=== PATIENT | female | born 1990 | race African-American/Black ===

== ENCOUNTER 2016-11-24 12:05 | Emergency (ER) | payer OTHER ==
[~2016-11-24] VITALS: Ht 154.9 cm; Wt 77.1 kg
[~2016-11-24 12:05] MED LIST: BENADRYL PRN; FERROUS SULFAT325 MG PO; MOTRIN800 MG PO; PRENATAL VITAMI1 T10 PO
[2016-11-24 12:26] VITALS: BP 131/96
--- NOTE | 2016-11-24 12:42 | NUR ---
PATIENT PRESENTS TO ED WITH COLD SYMPTOMS: COUGH, RUNNY NOSE, BODY ACHES X3 DAYS . PT DENIES N/V/D; SKIN IS PINK/WARM/DRY; AAOX4 WITH EVEN AND STEADY GAIT; LUNGS CLEAR BL; HR EVEN AND REGULAR; PATIENT STATES PAIN OF 0/10 AT THIS TIME; VSS; PATIENT POSITIONED FOR COMFORT; HOB ELEVATED; BEDRAILS UP X2; BED DOWN. SEEN BY ER .
[2016-11-24 12:59] VITALS: BP 131/96
== END 2016-11-24 12:59 | disposition home or self-care (01) ==
LOC: MED 12:05
DX: J11.1 Influenza due to unidentified influenza virus with other respiratory manifestations (principal); R03.0 Elevated blood-pressure reading, without diagnosis of hypertension

== ENCOUNTER 2018-03-14 05:06 | Observation (INO) | payer OTHER ==
[2018-03-14 05:30] VITALS: BP 108/53
== END 2018-03-14 05:55 | disposition home or self-care (01) ==
LOC: MLD 05:06
PROVIDERS: ADMIT Obstetrics & Gynecology; ATTEND Obstetrics & Gynecology
DX: O26.893 Other specified pregnancy related conditions, third trimester (principal); R10.9 Unspecified abdominal pain; O36.8130 Decreased fetal movements, third trimester, not applicable or unspecified; Z3A.37 37 weeks gestation of pregnancy
CPT/HCPCS: 59025; 81000; G0378

== ENCOUNTER 2018-03-23 11:19 | Inpatient (IN) | payer OTHER ==
[~2018-03-23] VITALS: Ht 154.9 cm; Wt 89.8 kg
[2018-03-23] MEDS ORDERED: TERBUTALINE 1 MG/ML VIAL SUBQ SCH (11:40)
[2018-03-23] MEDS ORDERED: TERBUTALINE 1 MG/ML VIAL SUBQ ONE ×2 (11:42→12:16)
[2018-03-23 13:11] VITALS: BP 132/63
[2018-03-23] MEDS ORDERED: NALBUPHINE 10 MG/ML AMP IVP PRN ×2 (16:55→23:20)
[2018-03-23] MEDS ORDERED: NALBUPHINE 10 MG/ML AMP ONE (17:01)
[2018-03-23] MEDS: LACTATED RINGERS 1,000 ML IV SCH ×2 (19:48→20:52)
[2018-03-23 19:56] LABS: BASOPHILS # (AUTO) 0.1 K/uL (0.00-0.22); BASOPHILS % (AUTO) 0.9 % (0.0-2.0); EOSINOPHILS % (AUTO) 0.3 % (0.0-4.0); HEMATOCRIT 32.9 % (36-48); HEMOGLOBIN 10.4 g/dL (12.0-16.0); LYMPHOCYTES # (AUTO) 1.9 K/uL (2.5-16.5); LYMPHOCYTES % (AUTO) 14.4 % (20.5-51.1); MEAN CORPUSCULAR HEMOGLOBIN 25 pg (27-31); MEAN CORPUSCULAR HGB CONC 32 g/dL (33-37); MEAN CORPUSCULAR VOLUME 78.2 fL (80-94); MONOCYTES # (AUTO) 0.7 K/uL (0.8-1.0); MONOCYTES % (AUTO) 5.2 % (1.7-9.3); NEUTROPHILS # (AUTO) 10.5 K/uL (1.8-7.7); NEUTROPHILS % (AUTO) 79.2 % (42.2-75.2); PLATELET COUNT (AUTO) 190 K/uL (140-450); RED BLOOD CELL COUNT(AUTO) 4.21 MIL/uL (4.20-5.40); RED CELL DISTRIBUTION WIDTH 15.7 % (11.6-13.7); WHITE BLOOD COUNT (AUTO) 13.2 K/uL (4.8-10.8)
[2018-03-23 20:16] LABS: ALBUMIN 2.5 g/dL (3.4-5.0); CARBON DIOXIDE 19.7 mmol/L (21-32); CREATININE 0.6 mg/dL (0.6-1.3); POTASSIUM 3.7 mmol/L (3.5-5.1); TOTAL BILIRUBIN 0.5 mg/dL (0.0-1.0)
[2018-03-23] MEDS ORDERED: CITRIC ACID/SODIUM CITRATE 30 ML UDC PO SCH (20:30)
[2018-03-23 20:37] LABS: APPEARANCE,URINE CLEAR (CLEAR); BILIRUBIN,URINE NEGATIVE (NEGATIVE); BLOOD, URINE NEGATIVE (NEGATIVE); COLOR,URINE YELLOW (YELLOW); LEUKOCYTE ESTERASE ,URINE NEGATIVE (NEGATIVE); NITRITE, URINE NEGATIVE (NEGATIVE); UGLUCOSE NEGATIVE (NEGATIVE)
[2018-03-23] MEDS ORDERED: FERR325E14 PO (22:06)
[2018-03-23] MEDS ORDERED: PREN-546 PO (22:06)
[2018-03-23 22:12] VITALS: BP 134/73
[2018-03-23] MEDS ORDERED: CITRIC ACID/SODIUM CITRATE 30 ML UDC ONE (22:18)
[2018-03-23] MEDS ORDERED: ceFAZolin 1,000 MG VIAL ONE (22:18)
[2018-03-23] MEDS ORDERED: OXYTOCIN 10 UNITS/ML VIAL ONE (22:35)
[2018-03-23] MEDS ORDERED: METHYLERGONOVINE 0.2 MG/ML AMP ONE (22:35)
[2018-03-23] MEDS ORDERED: ePHEDrine 50 MG/ML VIAL ONE (22:49)
[2018-03-23] MEDS ORDERED: MORPHINE PRES FREE 2 MG/2 ML 2 mL UD SYRINGE ONE (22:58)
[2018-03-23] MEDS ORDERED: fentaNYL 0.05 MG/ML VIAL ONE (22:58)
[2018-03-23] MEDS ORDERED: BUPIVACAINE/DEXT 0.75% SPINAL 2 ML AMP INJ ONE (23:00)
[2018-03-23] MEDS ORDERED: diphenhydrAMINE 50 MG/ML VIAL IVP PRN (23:20)
[2018-03-23] MEDS ORDERED: ONDANSETRON 4 MG/2 ML VIAL IVP PRN ×2 (23:20)
[2018-03-23] MEDS ORDERED: KETOROLAC 60 MG/2 ML VIAL IM PRN (23:20)
[2018-03-23] MEDS ORDERED: NALOXONE 0.4 MG/ML VIAL IVP PRN ×3 (23:20)
[2018-03-23] MEDS ORDERED: OXYTOCIN 20 UNITS/LR PREMIX 1,000 ML IV ONE (23:52)
[2018-03-23] MEDS ORDERED: ONDANSETRON 4 MG/2 ML VIAL ONE (23:53)
[2018-03-24] MEDS ORDERED: OXYTOCIN 10 UNITS in LACTATED RINGERS 1,000 ML IV SCH (02:38)
[2018-03-24] MEDS ORDERED: IBUPROFEN 800 MG TAB PO PRN (02:40)
[2018-03-24] MEDS ORDERED: HYDROcodone/APAP 5/325 MG 1 TAB TAB PO PRN (02:40)
[2018-03-24] MEDS ORDERED: SIMETHICONE 80 MG TAB.CHEW PO PRN (02:40)
[2018-03-24] MEDS ORDERED: METHYLERGONOVINE 0.2 MG/ML AMP IM PRN (02:40)
[2018-03-24] MEDS ORDERED: TRIMETHOBENZAMIDE 200 MG/2 ML SYR IM PRN (02:40)
[2018-03-24] MEDS ORDERED: TEMAZEPAM 15 MG CAP PO PRN (02:40)
[2018-03-24] MEDS ORDERED: MEASLES, MUMPS, AND RUBELLA 1 VIAL SQVAC PRN (02:40)
[2018-03-24] MEDS: OXYTOCIN 20 UNITS in LACTATED RINGERS 1,000 ML IV SCH ×3 (03:49→17:56)
[2018-03-24 07:14] LABS: BASOPHILS % (AUTO) 0.2 % (0.0-2.0); EOSINOPHILS % (AUTO) 0.1 % (0.0-4.0); HEMATOCRIT 29.7 % (36-48); HEMOGLOBIN 9.6 g/dL (12.0-16.0); LYMPHOCYTES # (AUTO) 1.8 K/uL (2.5-16.5); LYMPHOCYTES % (AUTO) 11.9 % (20.5-51.1); MEAN CORPUSCULAR HEMOGLOBIN 25 pg (27-31); MEAN CORPUSCULAR HGB CONC 32 g/dL (33-37); MEAN CORPUSCULAR VOLUME 77.8 fL (80-94); MONOCYTES # (AUTO) 0.8 K/uL (0.8-1.0); MONOCYTES % (AUTO) 5.1 % (1.7-9.3); NEUTROPHILS # (AUTO) 12.5 K/uL (1.8-7.7); NEUTROPHILS % (AUTO) 82.7 % (42.2-75.2); PLATELET COUNT (AUTO) 178 K/uL (140-450); RED BLOOD CELL COUNT(AUTO) 3.82 MIL/uL (4.20-5.40); RED CELL DISTRIBUTION WIDTH 15.4 % (11.6-13.7); WHITE BLOOD COUNT (AUTO) 15.1 K/uL (4.8-10.8)
--- NOTE | 2018-03-24 11:02 | NUR ---
PATIENT HAS BEEN SCREENED AND CATEGORIZED LOW NUTRITION RISK. PATIENT WILL BE SEEN WITHIN 7 DAYS OF ADMISSION. 03/30/[address]
[2018-03-24] MEDS ORDERED: SENNA 8.6 MG TAB PO SCH (21:00)
[2018-03-24] MEDS ORDERED: DOCUSATE SOD/SENNA 50/8.6 MG 1 TAB PO SCH (21:00)
[2018-03-24] MEDS: oxyCODONE/APAP 5/325 MG 1 TAB TAB PO PRN (23:53)
[2018-03-25] MEDS: oxyCODONE/APAP 5/325 MG 1 TAB TAB PO PRN ×2 (04:20→08:57)
[2018-03-25] MEDS ORDERED: IBUP-2217 PO (11:36)
== END 2018-03-25 13:05 | disposition home or self-care (01) | DRG 540 ==
LOC: MLD 11:19 → OBSVTOIN 20:33 → MFCC 03-24 01:03
PROVIDERS: ADMIT Obstetrics & Gynecology; ATTEND Obstetrics & Gynecology
PROC: 10D00Z1 Extraction of Products of Conception, Low, Open Approach (ICD-10-PCS; principal; 2018-03-23 22:30)
PROC: 3E0234Z Introduction of Serum, Toxoid and Vaccine into Muscle, Percutaneous Approach (ICD-10-PCS; 2018-03-25)
DX: O34.211 Maternal care for low transverse scar from previous cesarean delivery (principal); O24.420 Gestational diabetes mellitus in childbirth, diet controlled; K21.9 Gastro-esophageal reflux disease without esophagitis; O99.824 Streptococcus B carrier state complicating childbirth; O77.0 Labor and delivery complicated by meconium in amniotic fluid; Z37.0 Single live birth; Z3A.38 38 weeks gestation of pregnancy; Z23 Encounter for immunization; O99.62 Diseases of the digestive system complicating childbirth
CPT/HCPCS: G0378 ×9; 36415; 51702; 80053; 81003; 85025; 86592; 86870; 86886; 86900; 86901; 90715; J0690; J1200; J1885; J2210; J2270; J2300; J2405; J2590; J2790; J3010; J3105; J3490; J7060; J7120

== ENCOUNTER 2019-12-27 20:32 | Emergency (ER) | payer OTHER ==
[~2019-12-27] VITALS: Ht 152.4 cm; Wt 71.7 kg
[~2019-12-27 20:32] MED LIST changes: -BENADRYL PRN; +FERR325E14 PO; -FERROUS SULFAT325 MG PO; -MOTRIN800 MG PO; +PREN-546 PO; -PRENATAL VITAMI1 T10 PO
[2019-12-27 20:38] VITALS: BP 138/100
--- NOTE | 2019-12-27 20:42 | NUR ---
PT TAKEN TO BED 4
--- NOTE | 2019-12-27 20:43 | NUR ---
29 YO FEMALE BIB SELF FOR C/O CP SUBSTERNAL SINCE AM. PT STATES SHE WENT TO URGENT CARE EARLIER THIS PM AND WAS SENT TO ED FOR FURTHER TESTS. PT STATES 6/10 PRESSURE, DENIES RADIATING TO OTHER LOCATIONS @ THIS TIME. NSR ON EKG, +2 PALPABLE PULSES TO BILATERAL UPPER AND LOWER EXTREMITIES. LUNGS CLEAR EVEN UNLABORED BILATERALLY. ABD SOFT NON DISTENDED, DENIES NVD. SKIN INTACT. GURNEY LOCKED IN LOWEST POSITION. HX: DENIES RX: ASA 325 MG TAKEN 30 MINS PRIOR TO ED, SLEEP AID -BENADRYL TAKEN X 1 HOUR AGO. DENIES ALLERGIES
--- NOTE | 2019-12-27 20:45 | NUR ---
X-Ray at bedside.
[2019-12-27 21:50] VITALS: BP 142/81
--- NOTE | 2019-12-27 21:50 | NUR ---
Patient discharged with v/s stable. Written and verbal after care instructions given and explained. Patient verbalized understanding. Ambulatory with steady gait. All questions addressed prior to discharge. Advised to follow up with PMD.
== END 2019-12-27 21:50 | disposition home or self-care (01) ==
LOC: MED 20:32
DX: F41.9 Anxiety disorder, unspecified (principal); I10 Essential (primary) hypertension
CPT/HCPCS: 71045; 81025; 93005; 99283; Q0092